=== PATIENT | male | born 1970 | race Hispanic/Latino ===

== ENCOUNTER 2022-11-17 07:04 | Day surgery (SDC) | payer OTHER ==
[2022-11-13 10:48] LABS: BASOPHILS % (AUTO) 1.4 % (0.0-5.0); EOSINOPHILS % (AUTO) 1.7 % (0.0-8.0); HEMATOCRIT 49.1 % (42-54); LYMPHOCYTES % (AUTO) 25.6 % (21.0-51.0); MEAN CORPUSCULAR HEMOGLOBIN 30.4 pg (27.0-33.0); MEAN CORPUSCULAR HGB CONC 34.6 g/dL (32.0-36.0); MEAN CORPUSCULAR VOLUME 87.8 fL (79-99); MONOCYTES % (AUTO) 7.3 % (3.0-13.0); NEUTROPHILS % (AUTO) 63.1 % (40.0-77.0); PLATELET COUNT (AUTO) 259 K/uL (130-400); RED BLOOD CELL COUNT(AUTO) 5.59 MIL/uL (4.50-6.20); RED CELL DISTRIBUTION WIDTH 12.1 % (11.0-15.5); WHITE BLOOD COUNT (AUTO) 6.6 K/uL (4.8-10.8)
[2022-11-13 11:02] LABS: ALBUMIN 4.2 g/dL (3.5-5.0); BILIRUBIN,DIRECT 0.1 mg/dL (0.0-0.3); CREATININE 1.1 mg/dL (0.5-1.5); POTASSIUM 4.3 mmol/L (3.5-5.1); TOTAL PROTEIN, SERUM 8.1 g/dL (6.0-8.3)
[2022-11-13 11:04] VITALS: BP 127/82
[~2022-11-17] VITALS: Ht 157.5 cm; Wt 67.1 kg
[2022-11-17] VITALS (17 sets, daily range): BP systolic 110–128; BP diastolic 67–84
[~2022-11-17 07:04] MED LIST: [UNRECOGNIZED DRUG - OTHER] PO
[2022-11-17] MEDS ORDERED: LACTATED RINGERS 1000ML 1,000 ML IV ONE (07:19)
[2022-11-17] MEDS ORDERED: CEFAZOLIN SODIUM 2 GM VIAL ONE (07:19)
[2022-11-17] MEDS ORDERED: SUCCINYLCHOLINE 200MG/10ML SYR ONE (08:27)
[2022-11-17] MEDS ORDERED: LIDOCAINE PF 100MG/5ML (2%) SYRINGE 5ML ONE (08:27)
[2022-11-17] MEDS ORDERED: DEXAMETHASONE SOD PHOSPHATE 10MG/ML 1ML VIAL ONE (08:27)
[2022-11-17] MEDS ORDERED: ONDANSETRON 4MG INJ ONE (08:28)
[2022-11-17] MEDS ORDERED: ROCURONIUM 10MG/1ML SYR 10 MG/ML ML ONE (08:28)
[2022-11-17] MEDS ORDERED: PROPOFOL 10 MG/ML 20ML VIAL IV ONE (08:28)
[2022-11-17] MEDS ORDERED: FENTANYL CITRATE PF 50 MCG/1 ML 2ML VIAL ONE (08:28)
[2022-11-17] MEDS ORDERED: GLYCOPYRROLATE 1 MG/5 ML SYRINGE ONE (08:28)
[2022-11-17] MEDS ORDERED: NEOSTIGMINE 5MG/5ML SYR IV ONE (08:28)
[2022-11-17] MEDS ORDERED: MIDAZOLAM HCL 1 MG/ML 2ML VIAL ONE (08:28)
[2022-11-17] MEDS ORDERED: BUPIVACAINE/PF 0.25% 30ML VIAL IJ ONE (08:40)
[2022-11-17] MEDS ORDERED: BUPIVACAINE/EPI/PF 0.25% 30ML VIAL IJ SCH (09:00)
[2022-11-17] MEDS ORDERED: KETOROLAC 30MG VIAL (30MG/ML) ONE (10:47)
== END 2022-11-17 11:40 | disposition home or self-care (01) ==
LOC: DAH 07:04
PROVIDERS: ATTEND Surgery
DX: K43.6 Other and unspecified ventral hernia with obstruction, without gangrene (principal); Z20.822 Contact with and (suspected) exposure to COVID-19; K66.0 Peritoneal adhesions (postprocedural) (postinfection)
CPT/HCPCS: 80076; 80048; 85025; 87426; 36415; 49594; A6260; A4663; J7030 ×2; J7120; J3010; J0330; J3490 ×2; J1100; J2710; J2001; J2250; J2704; J2405; J1885; J0690; C1769 ×2; A4649; A4930 ×2; A4215; A4223; A4222; A4221

== ENCOUNTER → 2024-05-15 | Outpatient (CLI) | payer OTHER | END | disposition home or self-care (01) | LOC: RAH 08:51 | PROVIDERS: ATTEND Surgery | DX: K21.9 Gastro-esophageal reflux disease without esophagitis (principal); K42.9 Umbilical hernia without obstruction or gangrene; K44.9 Diaphragmatic hernia without obstruction or gangrene | CPT/HCPCS: 74220 ==

== ENCOUNTER → 2024-05-16 | Outpatient (CLI) | payer OTHER ==
[2024-05-16 15:52] LABS: CREATININE 1.4 mg/dL (0.5-1.3)
== END | disposition home or self-care (01) ==
LOC: LAB 14:49
PROVIDERS: ATTEND Surgery
DX: K42.9 Umbilical hernia without obstruction or gangrene (principal)
CPT/HCPCS: 36415; 82565; 84520

== ENCOUNTER → 2024-05-19 | Outpatient (CLI) | payer OTHER ==
[~2024-05-19] MED LIST changes: +IOHEXOL 350 MG/ML 100ML INFUS..BTL IV ONE
== END | disposition home or self-care (01) ==
LOC: RAH 07:18
PROVIDERS: ATTEND Surgery
DX: K76.0 Fatty (change of) liver, not elsewhere classified (principal); K42.9 Umbilical hernia without obstruction or gangrene; K44.9 Diaphragmatic hernia without obstruction or gangrene
CPT/HCPCS: 74177; Q9967